=== PATIENT | male | born 1955 | race Two or more races ===

== ENCOUNTER 2022-11-21 10:03 | Outpatient (CLI) | payer OTHER ==
[2022-11-21] MEDS ORDERED: CYSTOGRAFIN 300 ML INFUS..BTL UR ONE (10:27)
== END 2022-11-21 17:37 | disposition home or self-care (01) ==
LOC: SRD 10:03
PROVIDERS: ATTEND Urology
DX: C61 Malignant neoplasm of prostate (principal)
CPT/HCPCS: 74430; 51600; Q9958